=== PATIENT | female | born 1985 | race Caucasian/White ===

== ENCOUNTER 2017-06-20 13:57 | Inpatient (IN) | payer MEDICAID, OTHER ==
[~2017-06-20] VITALS: Ht 165.1 cm; Wt 59.3 kg
[2017-06-20 13:59] VITALS: BP 137/88; PULSE 75; RESP 15; TEMP 98.4; O2SAT 99
--- NOTE | 2017-06-20 14:38 | PD ---
Physical Exam Date Seen by Provider: Jun 20, 2017 Time Seen by Provider: 14:36 Narrative 31-year-old female cellulitis and swelling to the right upper eyelid since last Monday. Patient previously seen at 20 placed on Bactrim DS by mouth. Patient states his symptoms have not improved in fact the swelling has worsened. She was seen there again this morning, and the practitioner felt that she had an abscess needed to be drained. He felt uncomfortable doing it there. Patient denies fever chills. No history of MRSA in the past. No known drug allergies. Data Data Last Documented VS Vital Signs Date Time Temp Pulse Resp B/P (MAP) Pulse Ox O2 Delivery O2 Flow Rate FiO2 06/20/17 13:59 98.4 75 15 137/88 (104) 99 MDM Medical Record Reviewed: Yes Supervised Visit with ANA: Yes Narrative Course Vital signs are stable. Patient is awaiting bed placement. Condition: Stable John Osullivan Jun 20, 2017 14:38
--- NOTE | 2017-06-20 15:48 | PD ---
HPI Chief Complaint: Skin Problem Time Seen by Provider: 15:35 Travel History International Travel<30 days: No Contact w/Intl Traveler<30days: No Traveled to known affect area: No History of Present Illness HPI 31-year-old female with no significant past medical history presents for evaluation. She reports that 4-5 days ago she had an ingrown hair on her right eyebrow which she plucked and then squeezed out. She started developing redness and soft tissue swelling of the skin around the area afterwards. 2 days ago she was seen at an urgent care center and prescribed Bactrim. Her symptoms worsened which prompted reevaluation at the urgent care center today and she was sent here for further evaluation. She reports pain associated with his skin, throbbing, worse with palpation. She endorses occasional drainage when she squeezes the area underneath her right eyebrow. She has been applying warm compresses which seems to help as well. Denies fevers, chills, blurred vision. She has no other complaints at this time. FORMERLY [facility] Social History Alcohol Use: No Tobacco Use: No Allergies-Medications (Allergen,Severity, Reaction): Coded Allergies: No Known Allergies (Unverified , 05/06/16) Review of Systems Except as stated in HPI: all other systems reviewed are Neg Physical Exam Narrative GENERAL: Well-developed well-nourished female in no acute distress SKIN: Warm and dry. Right periorbital erythema is noted. There is induration and slight fluctuance of the right eyelid. HEAD: Atraumatic. Normocephalic. EYES: Pupils equal and round reactive to light extraocular muscles are intact, no proptosis, no pain with extraocular range of motion. No scleral icterus. No injection or drainage. ENT: No nasal bleeding or discharge. Mucous membranes pink and moist. NECK: Trachea midline. No JVD. Right preauricular Lymphadenopathy is noted. CARDIOVASCULAR: Regular rate and rhythm. No murmur appreciated. RESPIRATORY: No accessory muscle use. Clear to auscultation. Breath sounds equal bilaterally. GASTROINTESTINAL: Abdomen soft, non-tender, nondistended. MUSCULOSKELETAL: No obvious deformities. No clubbing. No cyanosis. No edema. NEUROLOGICAL: Awake and alert. No obvious cranial nerve deficits. Motor grossly within normal limits. Normal speech. Data Data Last Documented VS Vital Signs Date Time Temp Pulse Resp B/P (MAP) Pulse Ox O2 Delivery O2 Flow Rate FiO2 06/20/17 13:59 98.4 75 15 137/88 (104) 99 Orders Orders Complete Blood Count With Diff (06/20/17 15:41) Basic Metabolic Panel (Bmp) (06/20/17 15:41) Act Partial Throm Time (Ptt) (06/20/17 15:41) Prothrombin Time / Inr (Pt) (06/20/17 15:41) Ed Urine Pregnancytest Poc (06/20/17 15:41) Iv Access Insert/Monitor (06/20/17 15:41) Ct Facial Bones W Iv Contrast (06/20/17 ) Vancomycin Inj (Vancomycin Inj) (06/20/17 16:00) Sodium Chlor 0.9% 1000 Ml Inj (Ns 1000 M (06/20/17 15:54) Consult Oral, Facial Surgery (06/20/17 ) Iohexol 350 Inj (Omnipaque 350 Inj) (06/20/17 16:42) (Hub Use Only)Inp Phy Cons/Ref (06/20/17 ) Wound Culture And Gram Stain (06/20/17 17:28) Dexamethasone Inj (Decadron Inj) (06/20/17 17:45) Admit Order (Ed Use Only) (06/20/17 17:37) Labs Laboratory Tests Test 06/20/17 15:50 White Blood Count 10.2 TH/MM3 Red Blood Count 4.45 MIL/MM3 Hemoglobin 14.2 GM/DL Hematocrit 41.5 % Mean Corpuscular Volume 93.2 FL Mean Corpuscular Hemoglobin 31.9 PG Mean Corpuscular Hemoglobin Concent 34.2 % Red Cell Distribution Width 13.0 % Platelet Count 352 TH/MM3 Mean Platelet Volume 7.7 FL Neutrophils (%) (Auto) 68.3 % Lymphocytes (%) (Auto) 22.2 % Monocytes (%) (Auto) 8.3 % Eosinophils (%) (Auto) 0.7 % Basophils (%) (Auto) 0.5 % Neutrophils # (Auto) 6.9 TH/MM3 Lymphocytes # (Auto) 2.3 TH/MM3 Monocytes # (Auto) 0.8 TH/MM3 Eosinophils # (Auto) 0.1 TH/MM3 Basophils # (Auto) 0.1 TH/MM3 CBC Comment DIFF FINAL Differential Comment Prothrombin Time 10.6 SEC Prothromb Time International Ratio 1.0 RATIO Activated Partial Thromboplast Time 28.2 SEC Blood Urea Nitrogen 9 MG/DL Creatinine 0.80 MG/DL Random Glucose 84 MG/DL Calcium Level 9.2 MG/DL Sodium Level 137 MEQ/L Potassium Level 3.9 MEQ/L Chloride Level 104 MEQ/L Carbon Dioxide Level 25.5 MEQ/L Anion Gap 8 MEQ/L Estimat Glomerular Filtration Rate 85 ML/MIN [facility] Medical Decision Making Medical Screen Exam Complete: Yes Emergency Medical Condition: Yes Medical Record Reviewed: Yes Differential Diagnosis Periorbital cellulitis fell outpatient therapy, abscess, orbital cellulitis Narrative Course I discussed the case with the on-call craniofacial surgeon Dr. Yoon who would like CT imaging of the face, IV antibiotics, admission to medicine. CT face reveals CONCLUSION: 1. Prominent soft tissue swelling in the right periorbital region without extension into the retroseptal orbit. 2. Bilateral maxillary and left sphenoid sinus disease including air fluid levels in the maxillary sinuses, probably acute sinusitis. Dr. Yoon evaluated the patient at bedside, no surgical intervention recommended, recommended Decadron and admission. Diagnosis Primary Impression: Periorbital cellulitis of right eye Admitting Information Admitting Physician Requests: Admit Condition: Stable Nate West Jun 20, 2017 15:48
[2017-06-20] MEDS ORDERED: SODIUM CHLOR 0.9% 1000 ML INJ 1,000 ML IV SCH (15:54)
[2017-06-20] MEDS ORDERED: VANCOMYCIN INJ 1,000 MG in SODIUM CHLOR 0.9% 250 ML INJ 250 ML IV ONE (16:00)
[2017-06-20 16:11] LABS: AUTOMATED NEUTROPHIL # 6.9 TH/MM3 (1.8-7.7); BASOPHIL # 0.1 TH/MM3 (0-0.2); BASOPHIL % 0.5 % (0.0-2.0); EOSINOPHIL # 0.1 TH/MM3 (0-0.4); EOSINOPHIL % 0.7 % (0.0-4.0); HEMATOCRIT 41.5 % (35.0-46.0); HEMO FLAGS DIFF FINAL; LYMPH % 22.2 % (9.0-44.0); LYMPHOCYTE # 2.3 TH/MM3 (1.0-4.8); MEAN CELL VOLUME 93.2 FL (80.0-100.0); MEAN CORPUSCULAR HEMOGLOBIN 31.9 PG (27.0-34.0); MEAN CORPUSCULAR HGB CONC 34.2 % (32.0-36.0); MONO % 8.3 % (0.0-8.0); NEUT % 68.3 % (16.0-70.0); PLATELET COUNT 352 TH/MM3 (150-450); RED BLOOD COUNT 4.45 MIL/MM3 (4.00-5.30); WHITE BLOOD COUNT 10.2 TH/MM3 (4.0-11.0)
[2017-06-20 16:18] LABS: APTT (PATIENT) 28.2 SEC (24.3-30.1); PROTHROMBIN TIME - PATIENT 10.6 SEC (9.8-11.6)
[2017-06-20 16:32] LABS: BICARBONATE 25.5 MEQ/L (21.0-32.0); POTASSIUM 3.9 MEQ/L (3.5-5.1)
[2017-06-20] MEDS ORDERED: IOHEXOL 350 MG/ML 10 ML VIAL (for RAD DIAG) IVCONTRAST ONE (16:42)
--- NOTE | 2017-06-20 17:19 | RADRPT ---
EXAM DATE/TIME: 06/20/2017 16:30 [place] COMPARISON: No previous studies available for comparison. INDICATIONS : Right eye swelling for 4 days. IV CONTRAST: 75 cc Omnipaque 350 (iohexol) IV RADIATION DOSE: 36.40 CTDIvol (mGy) MEDICAL HISTORY : None SURGICAL HISTORY : None. ENCOUNTER: Initial ACUITY: 4 - 6 days PAIN SCALE: 6/10 LOCATION: Right facial TECHNIQUE: Volumetric scanning of the facial bones was performed. Using automated exposure control and adjustme nt of the mA and/or kV according to patient size, radiation dose was kept as low as reasonably achiev able to obtain optimal diagnostic quality images. DICOM format image data is available electronicall y for review and comparison. FINDINGS: There is prominent soft tissue swelling in the right periorbital region with soft tissues measuring u p to 12 mm in thickness. Aeration lungs extends from the supraorbital region to the mid orbit. No r etroseptal involvement. The orbital globe is normal in dimension. The facial bones are grossly intact. No fractures or areas of destruction seen. Air-fluid levels are present in both maxillary sinuses and there is moderate mucosal thickening in th e medial and lateral left maxillary sinus wall. There is mucosal thickening in the left sphenoid sin us. A no mucosal thickening in the frontal or ethmoid sinuses. CONCLUSION: 1. Prominent soft tissue swelling in the right periorbital region without extension into the retrosep bhavana orbit. 2. Bilateral maxillary and left sphenoid sinus disease including air fluid levels in the maxillary si nuses, probably acute sinusitis. Andrey England MD on June 20, 2017 at 17:03 Board Certified Radiologist. This report was verified electronically.
[2017-06-20] MEDS ORDERED: NALOXONE HCL 0.4 MG/ML AMP IV PUSH PRN (17:45)
[2017-06-20] MEDS ORDERED: SODIUM CHLORIDE 0.9% FLUSH 10 ML FLUSH IV FLUSH PRN (17:45)
[2017-06-20] MEDS ORDERED: MAGNESIUM HYDROXIDE SUSP 30 ML CUP PO PRN (17:45)
[2017-06-20] MEDS ORDERED: LACTULOSE SYRUP 20 GM/30 ML CUP PO PRN (17:45)
[2017-06-20] MEDS ORDERED: DEXAMETHASONE SOD PHOS 4 MG/ML VIAL IV PUSH ONE (17:45)
[2017-06-20] MEDS ORDERED: Vancomycin Consult Pharmacy 1 EA OTHER SCH (17:45)
[2017-06-20] MEDS ORDERED: SENNOSIDES 8.6 MG TAB PO PRN (17:45)
[2017-06-20] MEDS ORDERED: ONDANSETRON HCL 4 MG/2 ML VIAL IVP PRN (17:45)
[2017-06-20] MEDS ORDERED: BISACODYL 10 MG SUPP RECTAL PRN (17:45)
[2017-06-20] MEDS ORDERED: ACETAMINOPHEN 325 MG TAB PO PRN (17:45)
[2017-06-20] MEDS ORDERED: IBUPROFEN 800 MG TAB PO ONE (18:00)
--- NOTE | 2017-06-20 18:06 | MB ---
cc: JERROD YOON DMD DATE OF CONSULTATION 06/20/17 REASON FOR CONSULTATION Status post plucking an eyebrow right periorbital region. This is a 31-year old female who about five days ago reported that she had an ingrown hair and she popped it. Subsequent to that, she began to have edema and swelling and she used to squeeze it and she said some pus came out. She went to Urgent Care Center, was put on Bactrim but it never resolved. I have seen and examined the patient this afternoon. Her nurse is at bedside. She is alert, awake and oriented x3 in no acute distress. Denies any pain or any visual disturbances related to the eye. She also reports that warm compresses make her feel better. Denies any fever, chills, nausea or any vomiting. PAST MEDICAL HISTORY Denied ALLERGIES Denied. PAST SURGICAL HISTORY Denied SOCIAL HISTORY Denies any alcohol, tobacco or any illicit drug abuse. MEDICATIONS Denied. PHYSICAL EXAMINATION HEENT: Pupils equal, round, reactive to light and accommodation. Extraocular movements intact. Positive good visual acuity noted. On the right supraorbital rim, there appears to be an area she plucked the hair and there is an area of redness, erythema and then extending down to the upper right upper eyelid. The right supraorbital rim region is hard and it is firm. It is raised. It is well-circumscribed erythema. Mild tenderness to palpation, but no gross discomfort. No drainable collection that is noted to clinical exam. Upon examination, no pus that is noted I could see at this point. IMAGING STUDIES CT scan of the facial bones shows edema right periorbital region, supraorbital region, but I do not appreciate any drainable collection or abscess at this point. No ridge septal involvement of any collection or anything. VITAL SIGNS: Temperature 98.4, pulse is 75, respiration 15, blood pressure 137/88 with pulse ox of 99. White count is 10.2, H&H is 14.2 and 41.5 with platelets of 352. IMPRESSION AND PLAN This is a 31-year-old female who is status post plucking an eyebrow now infected. This could be infected hair follicle versus MRSA. Advised warm compress, IV antibiotics, advised to admit to medicine and infectious diseases consult. At this time, there is no surgical intervention or any drainable collection noted from my standpoint. We will follow so at this point we will just manage medically. Jerrod Yoon DMD RRT/SA /5:30 PM /5:44 PM
[2017-06-20 19:09] VITALS: BP 122/77; PULSE 66; RESP 14; O2SAT 99
[2017-06-20] MEDS ORDERED: IBUPROFEN 800 MG TAB PO PRN (19:45)
--- NOTE | 2017-06-20 19:58 | HHI.HP ---
[facility] No Primary Care Physician Admission Diagnosis right periorbital cellulitis Diagnoses: Chief Complaint: right eye pain and swelling Travel History International Travel<30 Days: No Contact w/Intl Traveler <30 Da: No Traveled to Known Affected Are: No History of Present Illness 31 y/o female with no medical history presented to the ED with right eye swelling. Patient states 5 days ago she had and ingrown eyebrow hair that she picked at with the same tool that her boyfriend used on his toe. She states the next day it began to swell and when she used a warm cloth on her eye some pus came out. She went to an urgent care and was given Bactrim, she took 3 days worth with not relief, and the swelling became worse. The redness and swelling covers her whole eye and eyelid and she can slightly open her eye. She denies any double or blurry vision, She states the pain is throbbing 5/10, and the ibuprofen has helped. She denies any chest pain, sob, fever or chills. Review of Systems Except as stated in HPI: all other systems reviewed are Neg Past Family Social History Past Medical History Patient denies any medical history Past Surgical History Patient denies any surgical history Allergies: Coded Allergies: No Known Allergies (Unverified , 05/06/16) Active Ordered Medications Current Medications Medications (Trade) Dose Ordered Sig/Kevin Route Start Time Stop Time Status Last Admin Sodium Chloride 1,000 ml @ 100 mls/hr Q10H IV 06/20/17 17:40 UNV (NS Flush) 2 ml UNSCH PRN IV FLUSH 06/20/17 17:45 UNV (NS Flush) 2 ml BID IV FLUSH 06/20/17 21:00 UNV (Tylenol) 650 mg Q4H PRN PO 06/20/17 17:45 UNV (Zofran Inj) 4 mg Q6H PRN IVP 06/20/17 17:45 UNV (Narcan Inj) 0.4 mg UNSCH PRN IV PUSH 06/20/17 17:45 UNV (Hermila-Colace) 1 tab BID PO 06/20/17 21:00 UNV (Milk Of Magnesia Liq) 30 ml Q12H PRN PO 06/20/17 17:45 UNV (Senokot) 17.2 mg Q12H PRN PO 06/20/17 17:45 UNV (Dulcolax Supp) 10 mg DAILY PRN RECTAL 06/20/17 17:45 UNV (Lactulose Liq) 30 ml DAILY PRN PO 06/20/17 17:45 UNV Pharmacy Profile Note 0 ml @ 0 mls/hr UNSCH OTHER 06/20/17 17:45 UNV Ampicillin Sodium/ Sulbactam Sodium 3 gm/Sodium Chloride 100 ml @ 200 mls/hr Q6H IV 06/20/17 17:45 UNV (Decadron Inj) 4 mg Q6HR IV PUSH 06/20/17 23:00 UNV Family History Mom: RA Social History Patient denies any tobacco, alcohol or illicit drug use. Physical Exam Vital Signs Vital Signs Date Time Temp Pulse Resp B/P (MAP) Pulse Ox O2 Delivery O2 Flow Rate FiO2 06/20/17 19:10 14 06/20/17 19:09 66 14 122/77 (92) 99 06/20/17 13:59 98.4 75 15 137/88 (104) 99 Physical Exam GENERAL: This is a well-nourished, well-developed patient, in no apparent distress. SKIN: Right hermila orbital swelling and erythema HEAD: Atraumatic. Normocephalic. EYES: Pupils equal round and reactive. ENT: Nose without bleeding, purulent drainage or septal hematoma. Airway patent. NECK: Trachea midline. No JVD CARDIOVASCULAR: Regular rate and rhythm without murmurs, gallops, or rubs. RESPIRATORY: Clear to auscultation. Breath sounds equal bilaterally. No wheezes , rales, or rhonchi. GASTROINTESTINAL: Abdomen soft, non-tender, nondistended. MUSCULOSKELETAL: Extremities without clubbing, cyanosis, or edema. No calf tenderness. NEUROLOGICAL: Awake and alert. Motor and sensory grossly within normal limits. Normal speech. Laboratory Laboratory Tests Test 06/20/17 15:50 White Blood Count 10.2 Red Blood Count 4.45 Hemoglobin 14.2 Hematocrit 41.5 Mean Corpuscular Volume 93.2 Mean Corpuscular Hemoglobin 31.9 Mean Corpuscular Hemoglobin Concent 34.2 Red Cell Distribution Width 13.0 Platelet Count 352 Mean Platelet Volume 7.7 Neutrophils (%) (Auto) 68.3 Lymphocytes (%) (Auto) 22.2 Monocytes (%) (Auto) 8.3 Eosinophils (%) (Auto) 0.7 Basophils (%) (Auto) 0.5 Neutrophils # (Auto) 6.9 Lymphocytes # (Auto) 2.3 Monocytes # (Auto) 0.8 Eosinophils # (Auto) 0.1 Basophils # (Auto) 0.1 CBC Comment DIFF FINAL Differential Comment Prothrombin Time 10.6 Prothromb Time International Ratio 1.0 Activated Partial Thromboplast Time 28.2 Blood Urea Nitrogen 9 Creatinine 0.80 Random Glucose 84 Calcium Level 9.2 Sodium Level 137 Potassium Level 3.9 Chloride Level 104 Carbon Dioxide Level 25.5 Anion Gap 8 Estimat Glomerular Filtration Rate 85 Date/Time Source Procedure Growth Status 06/20/17 18:00 Wound Face Gram Stain Pending Received 06/20/17 18:00 Wound Face Wound Culture Pending Received Result Diagram: 06/20/17 1550 06/20/17 1550 Imaging Last Impressions Maxillofacial CT 06/20/17 0000 Signed Impressions: Service Date/Time: Tuesday, June 20, 2017 16:30 - CONCLUSION: 1. Prominent soft tissue swelling in the right periorbital region without extension into the retroseptal orbit. 2. Bilateral maxillary and left sphenoid sinus disease including air fluid levels in the maxillary sinuses, probably acute sinusitis. MD Buzz Serrano VTE Risk Assessment Caprini VTE Risk Assessment: No/Low Risk (score <= 1) Caprini Risk Assessment Model Point Value = 1 Point Value = 2 Point Value = 3 Point Value = 5 Age 41-60 Minor surgery BMI > 25 kg/m2 Swollen legs Varicose veins or History of unexplained or recurrent spontaneous Oral contraceptives or hormone replacement Sepsis (< 1 month) Serious lung disease, including pneumonia (< 1 month) Abnormal pulmonary function Acute myocardial infarction Congestive heart failure (< 1 month) History of inflammatory bowel disease Medical patient at bed rest Age 61-74 Arthroscopic surgery Major open surgery (> 45 min) Laparoscopic surgery (> 45 min) Malignancy Confined to bed (> 72 hours) Immobilizing plaster cast Central venous access Age >= 75 History of VTE Family history of VTE Factor V Leiden Prothrombin [id number] Lupus anticoagulant Anticardiolipin antibodies Elevated serum homocysteine Heparin-induced thrombocytopenia Other congenital or acquired thrombophilia Stroke (< 1 month) Elective arthroplasty Hip, pelvis, or leg fracture Acute spinal cord injury (< 1 month) Prophylaxis Regimen Total Risk Factor Score Risk Level Prophylaxis Regimen 0-1 Low Early ambulation 2 Moderate Order ONE of the following: *Sequential Compression Device (SCD) *Heparin 5000 units SQ BID 3-4 Higher Order ONE of the following medications: *Heparin 5000 units SQ TID *Enoxaparin/Lovenox 40 mg SQ daily (WT < 150 kg, CrCl > 30 mL/min) *Enoxaparin/Lovenox 30 mg SQ daily (WT < 150 kg, CrCl > 10-29 mL/min) *Enoxaparin/Lovenox 30 mg SQ BID (WT < 150 kg, CrCl > 30 mL/min) AND/OR *Sequential Compression Device (SCD) 5 or more Highest Order ONE of the following medications: *Heparin 5000 units SQ TID (Preferred with Epidurals) *Enoxaparin/Lovenox 40 mg SQ daily (WT < 150 kg, CrCl > 30 mL/min) *Enoxaparin/Lovenox 30 mg SQ daily (WT < 150 kg, CrCl > 10-29 mL/min) *Enoxaparin/Lovenox 30 mg SQ BID (WT < 150 kg, CrCl > 30 mL/min) AND *Sequential Compression Device (SCD) Assessment and Plan Problem List: (1) Periorbital cellulitis of right eye ICD Code: L03.213 - Periorbital cellulitis Status: Acute Assessment and Plan 31 y/o female with no medical history presented to the ED with right eye swelling. Cellulitis, right eye, failed outpatient, patient with infected hair follicle Maxillofacial CT reviewed and shows Soft tissue swelling in the right periorbital region without extension into the retroseptal orbit -Consult maxillofacial, Dr. Yoon states no surgery at this time, will treat with IV antibiotics -Consult infectious disease -Dexamethasone IV -IV antibiotics vancomycin and Unasyn -Ibuprofen by mouth for pain management -Warm compresses when necessary DVT prophylaxis: SCDs Discussed Condition With Patient and RN Physician Certification 2 Midnight Certification Type: Admission for Inpatient Services Order for Inpatient Services The services are ordered in accordance with Medicare regulations or non- Medicare payer requirements, as applicable. In the case of services not specified as inpatient-only, they are appropriately provided as inpatient services in accordance with the 2-midnight benchmark. Estimated LOS (days): 2 days is the estimated time the patient will need to remain in the hospital, assuming treatment plan goals are met and no additional complications. Post-Hospital Plan: Home Janie Paulson Jun 20, 2017 19:58
[2017-06-20 20:00] VITALS: BP 112/74; PULSE 62; RESP 18; TEMP 98.3; O2SAT 100
[2017-06-20] MEDS: SODIUM CHLOR 0.9% 1000 ML INJ 1,000 ML IV SCH (21:59)
[2017-06-20] MEDS: DOCUSATE SODIUM 50 MG/SENNA 8.6 MG TAB PO SCH (21:59)
[2017-06-20] MEDS: SODIUM CHLORIDE 0.9% FLUSH 10 ML FLUSH IV FLUSH SCH (22:00)
[2017-06-20] MEDS: AMPICILLIN-SULBACTAM INJ 3 GM in SODIUM CHLORIDE 0.9% INJ 100 ML IV SCH (22:02)
[2017-06-21] VITALS: BP 108/64; PULSE 76; RESP 18; TEMP 97.7; O2SAT 97
[2017-06-21] MEDS: DEXAMETHASONE SOD PHOS 4 MG/ML VIAL IV PUSH SCH ×5 (00:03→23:37)
[2017-06-21] MEDS: AMPICILLIN-SULBACTAM INJ 3 GM in SODIUM CHLORIDE 0.9% INJ 100 ML IV SCH ×3 (03:40→16:00)
[2017-06-21] MEDS: VANCOMYCIN 1,000 MG/NS 250 ML IV SCH ×4 (05:44→18:20)
[2017-06-21 08:00] VITALS: BP 112/72; PULSE 61; RESP 17; TEMP 97.5; O2SAT 96
[2017-06-21] MEDS: DOCUSATE SODIUM 50 MG/SENNA 8.6 MG TAB PO SCH ×2 (09:36→21:00)
[2017-06-21] MEDS: SODIUM CHLORIDE 0.9% FLUSH 10 ML FLUSH IV FLUSH SCH ×2 (09:37→22:42)
[2017-06-21] MEDS: SODIUM CHLOR 0.9% 1000 ML INJ 1,000 ML IV SCH ×3 (11:31→22:42)
[2017-06-21 12:00] VITALS: BP 113/78; PULSE 77; RESP 17; TEMP 98; O2SAT 98
[2017-06-21 16:00] VITALS: BP 109/64; PULSE 68; RESP 17; TEMP 97.9; O2SAT 98
--- NOTE | 2017-06-21 16:40 | HHI.PR ---
Subjective Remarks Patient reports improvement in right periorbital cellulitis. Cultures have shown MRSA thus far. Sensitivities pending. Objective Vital Signs Date Time Temp Pulse Resp B/P (MAP) Pulse Ox O2 Delivery O2 Flow Rate FiO2 06/21/17 16:00 97.9 68 17 109/64 (79) 98 06/21/17 12:00 98.0 77 17 113/78 (90) 98 06/21/17 08:00 97.5 61 17 112/72 (85) 96 06/21/17 00:00 97.7 76 18 108/64 (79) 97 06/20/17 20:14 06/20/17 20:00 98.3 62 18 112/74 (87) 100 06/20/17 19:10 14 06/20/17 19:09 66 14 122/77 (92) 99 I/O 06/20/17 06/20/17 06/20/17 06/21/17 06/21/17 06/21/17 07:00 15:00 23:00 07:00 15:00 23:00 Intake Total 1690 ml 1201 ml 100 ml 100 ml Output Total 280 ml 300 ml Balance 1410 ml 901 ml 100 ml 100 ml Intake Oral 340 ml 220 ml IV Total 1350 ml 981 ml 100 ml 100 ml Output Urine Total 280 ml 300 ml # Bowel Movements 0 0 Result Diagram: 06/20/17 1550 06/20/17 1550 Objective Remarks GENERAL: NAD, A&Ox3 HEAD: Normocephalic. Erythema superior aspect of right periorbital cavity. NECK: Supple, trachea midline. No lymphadenopathy. EYES: No scleral icterus. No injection or drainage. CARDIOVASCULAR: Regular rate and rhythm without murmurs, gallops, or rubs. RESPIRATORY: Breath sounds equal bilaterally. No accessory muscle use. GASTROINTESTINAL: Abdomen soft, non-tender, nondistended. MUSCULOSKELETAL: No cyanosis, or edema. SKIN: Warm and dry. NEURO: No focal neurological deficitis. A/P Problem List: (1) Periorbital cellulitis of right eye ICD Code: L03.213 - Periorbital cellulitis Status: Acute Assessment and Plan Assessment and Plan 31 y/o female admitted with right periorbital cellulitis Right periorbital cellulitis Continue vancomycin Continue Unasyn Continue pain treatments as needed Will select discharge antibiotic based on sensitivities Follow cultures DVT prophylaxis SCDs Anatoliy Huynh MD Jun 21, 2017 16:40
--- NOTE | 2017-06-21 16:44 | HHI.PR ---
Subjective Remarks pt seen and examined, pt's nurse at bedside aaox3, nad pt reports spontaneous drainage s/p abx/warm compress - cultured no complaints, reports feeling much better, denies any visual problems on abx/warm compress Objective Vital Signs Date Time Temp Pulse Resp B/P (MAP) Pulse Ox O2 Delivery O2 Flow Rate FiO2 06/21/17 16:00 97.9 68 17 109/64 (79) 98 06/21/17 12:00 98.0 77 17 113/78 (90) 98 06/21/17 08:00 97.5 61 17 112/72 (85) 96 06/21/17 00:00 97.7 76 18 108/64 (79) 97 06/20/17 20:14 06/20/17 20:00 98.3 62 18 112/74 (87) 100 06/20/17 19:10 14 06/20/17 19:09 66 14 122/77 (92) 99 I/O 06/20/17 06/20/17 06/20/17 06/21/17 06/21/17 06/21/17 07:00 15:00 23:00 07:00 15:00 23:00 Intake Total 1690 ml 1201 ml 100 ml 100 ml Output Total 280 ml 300 ml Balance 1410 ml 901 ml 100 ml 100 ml Intake Oral 340 ml 220 ml IV Total 1350 ml 981 ml 100 ml 100 ml Output Urine Total 280 ml 300 ml # Bowel Movements 0 0 Result Diagram: 06/20/17 1550 06/20/17 1550 Other Results GRAM STAIN Final 06/21/17 FEW WBC'S RARE GRAM POSITIVE COCCI IN PAIRS AND CLUSTERS HEAVY GROWTH S. AUREUS MRSA Objective Remarks PERRLA/EOMI right eye -->+ good visual acuity significant reduction in right periorbital edema/erythema much softer, no pus noted eye wide open no tenderness Assessment and Plan Assessment and Plan s/p plucking right eyebrow, 5 days ago failed out patient therapy cultured in ed GRAM STAIN Final 06/21/17-818 FEW WBC'S RARE GRAM POSITIVE COCCI IN PAIRS AND CLUSTERS HEAVY GROWTH S. AUREUS MRSA continue abx/ warm compress advise ID consult for abx/ discharge antibiotics no surgical intervention needed form oms standpoint OMS signing off, recall as required. Jona Yoon DMD Jun 21, 2017 16:44
--- NOTE | 2017-06-21 17:00 | PD.ID.CON ---
History of Present Illness Service ID Consult Requested By Reason for Consult Evaluation and Mment of Right periorbital cellulitis. Primary Care Physician No Primary Care Physician Diagnoses: History of Present Illness is a 31 y/o F with no significant PMHx presents to the ED with right eye swelling. Patient states 5 days ago she had ingrown eyebrow hair that she picked at with the same tool that her boyfriend used on his toe. She states the next day it began to swell and when she used a warm cloth on her eye some pus came out. She went to an urgent care and was given Bactrim, she took 3 days worth with not relief, and the swelling became worse. The redness and swelling covers her whole eye and eyelid and she can slightly open her eye. She denies any double or blurry vision, She states the pain is throbbing 5/10, and the ibuprofen has helped. She denies any chest pain, sob, fever or chills. ID was consulted for periorbital cellulitis. Review of Systems Constitutional: DENIES: Diaphoretic episodes, Fatigue, Fever, Weight gain, Weight loss, Chills, Dizziness, Change in appetite, Night Sweats Endocrine: DENIES: Abnorml menstrual pattern, Heat/cold intolerance, Polydipsia , Polyuria, Polyphagia Eyes: DENIES: Blurred vision, Diplopia, Eye inflammation, Eye pain, Vision loss , Photosensitivity, Double Vision Ears, nose, mouth, throat: DENIES: Tinnitus, Hearing loss, Vertigo, Nasal discharge, Oral lesions, Throat pain, Hoarseness, Ear Pain, Running Nose, Epistaxis, Sinus Pain, Toothache, Odynophagia Respiratory: DENIES: Apneas, Cough, Snoring, Wheezing, Hemoptysis, Sputum production, Shortness of breath Cardiovascular: DENIES: Chest pain, Palpitations, Syncope, Dyspnea on Exertion , PND, Lower Extremity Edema, Orthopnea, Claudication Gastrointestinal: DENIES: Abdominal pain, Black stools, Bloody stools, Constipation, Diarrhea, Nausea, Vomiting, Difficulty Swallowing, Anorexia Genitourinary: DENIES: Abnormal vaginal bleeding, Dysmenorrhea, Dyspareunia, Sexual dysfunction, Urinary frequency, Urinary incontinence, Urgency, Hematuria , Dysuria, Nocturia, Vaginal discharge Musculoskeletal: DENIES: Joint pain, Muscle aches, Stiffness, Joint Swelling, Back pain, Neck pain Integumentary: DENIES: Abnormal pigmentation, Pruritus, Rash, Nail changes, Breast masses, Breast skin changes, Nipple discharge Hematologic/lymphatic: DENIES: Bruising, Lymphadenopathy Immunologic/allergic: DENIES: Eczema, Urticaria Neurologic: DENIES: Abnormal gait, Headache, Localized weakness, Paresthesias, Seizures, Speech Problems, Tremor, Poor Balance Psychiatric: DENIES: Anxiety, Confusion, Mood changes, Depression, Hallucinations, Agitation, Suicidal Ideation, Homicidal Ideation, Delusions Except as stated in HPI: all other systems reviewed are Neg Past Family Social History Allergies: Coded Allergies: No Known Allergies (Unverified , 05/06/16) Past Medical History None Past Surgical History None Reported Medications I attest I reviewed, obtained or updated home meds and current meds. Bactrim DS 1 po bid Active Ordered Medications Last Impressions Maxillofacial CT 06/20/17 0000 Signed Impressions: Service Date/Time: Tuesday, June 20, 2017 16:30 - CONCLUSION: 1. Prominent soft tissue swelling in the right periorbital region without extension into the retroseptal orbit. 2. Bilateral maxillary and left sphenoid sinus disease including air fluid levels in the maxillary sinuses, probably acute sinusitis. Andrey England MD Family History Mom has RA Social History Patient denies any tobacco, alcohol or illicit drug use. Lives with boyfriend of 11 yrs and has a 13 month old baby. Physical Exam Vital Signs Vital Signs Date Time Temp Pulse Resp B/P (MAP) Pulse Ox O2 Delivery O2 Flow Rate FiO2 06/21/17 16:00 97.9 68 17 109/64 (79) 98 06/21/17 12:00 98.0 77 17 113/78 (90) 98 06/21/17 08:00 97.5 61 17 112/72 (85) 96 06/21/17 00:00 97.7 76 18 108/64 (79) 97 06/20/17 20:14 06/20/17 20:00 98.3 62 18 112/74 (87) 100 06/20/17 19:10 14 06/20/17 19:09 66 14 122/77 (92) 99 Physical Exam GENERAL: This is a well-nourished, well-developed patient, in no apparent distress. SKIN: No rashes, ecchymoses or lesions. Cool and dry. HEAD: Atraumatic. Normocephalic. No temporal or scalp tenderness. EYES: Pupils equal round and reactive. Extraocular motions intact. No scleral icterus. No injection or drainage. Right eye upper eyelid swelling and erythema noted. ENT: Nose without bleeding, purulent drainage or septal hematoma. Throat without erythema, tonsillar hypertrophy or exudate. Uvula midline. Airway patent. NECK: Trachea midline. Supple, nontender, no meningeal signs. CARDIOVASCULAR: Regular rate and rhythm without murmurs, gallops, or rubs. RESPIRATORY: Clear to auscultation. Breath sounds equal bilaterally. No wheezes , rales, or rhonchi. GASTROINTESTINAL: Abdomen soft, non-tender, nondistended. MUSCULOSKELETAL: Extremities without clubbing, cyanosis, or edema. NEUROLOGICAL: Awake and alert. Cranial nerves II through XII intact. Motor and sensory grossly within normal limits. Five out of 5 muscle strength in all muscle groups. Normal speech. Psych cooperative IV line sites with no e.o infection. Laboratory Date/Time Source Procedure Growth Status 06/20/17 18:00 Wound Face Gram Stain - Final Resulted 06/20/17 18:00 Wound Culture - Preliminary S. Aureus Mrsa Resulted Result Diagram: 06/20/17 1550 06/20/17 1550 Imaging Last Impressions Maxillofacial CT 06/20/17 0000 Signed Impressions: Service Date/Time: Tuesday, June 20, 2017 16:30 - CONCLUSION: 1. Prominent soft tissue swelling in the right periorbital region without extension into the retroseptal orbit. 2. Bilateral maxillary and left sphenoid sinus disease including air fluid levels in the maxillary sinuses, probably acute sinusitis. Andrey England MD Assessment and Plan Assessment and Plan Right periorbital cellulitis Recs Continue Vanco IV DC Unasyn Reviewed notes Geovanny Saenz. On discharge please provide pt script for mupirocin ointment and Chlorhexidine soap. Geovanny Saenz. Zahida Ahuja MD Jun 21, 2017 17:00
[2017-06-21 20:00] VITALS: BP 109/66; PULSE 71; RESP 17; TEMP 98.8; O2SAT 98
[2017-06-22] VITALS: BP 100/62; PULSE 70; RESP 17; TEMP 97.8; O2SAT 98
[2017-06-22] MEDS: DEXAMETHASONE SOD PHOS 4 MG/ML VIAL IV PUSH SCH ×3 (05:08→17:44)
[2017-06-22] MEDS: VANCOMYCIN 1,000 MG/NS 250 ML IV SCH ×2 (05:09)
[2017-06-22] MEDS: SODIUM CHLOR 0.9% 1000 ML INJ 1,000 ML IV SCH (05:13)
[2017-06-22] MEDS ORDERED: PHARMACY ORDERED LAB ONE (05:45)
[2017-06-22 06:09] LABS: VANCOMYCIN TROUGH 6.2 MCG/ML (5.0-10.0)
[2017-06-22 08:00] VITALS: BP 112/63; PULSE 70; RESP 20; TEMP 97.5; O2SAT 97
[2017-06-22] MEDS: SODIUM CHLORIDE 0.9% FLUSH 10 ML FLUSH IV FLUSH SCH (08:44)
[2017-06-22] MEDS: DOCUSATE SODIUM 50 MG/SENNA 8.6 MG TAB PO SCH (08:44)
[2017-06-22 12:00] VITALS: BP 113/79; PULSE 63; RESP 19; TEMP 97.5; O2SAT 99
[2017-06-22] MEDS ORDERED: VANCOMYCIN 1,000 MG/NS 250 ML IV SCH ×2 (14:00)
[2017-06-22] MEDS ORDERED: BACTOIN EACH NARE (16:43)
[2017-06-22] MEDS ORDERED: BACT800T5 PO (16:43)
[2017-06-22] MEDS ORDERED: CHLO60LI TOPICAL (16:43)
[2017-06-22] MEDS ORDERED: LACTTAB8 PO (16:43)
--- NOTE | 2017-06-22 16:47 | HHI.DS ---
Discharge Summary Admission Date Jun 20, 2017 at 17:38 Discharge Date: Jun 22, 2017 Admitting Diagnosis right periorbital cellulitis (1) Periorbital cellulitis of right eye ICD Code: L03.213 - Periorbital cellulitis Diagnosis: Principal Status: Acute Procedures None Brief History - From Admission 31 y/o female with no medical history presented to the ED with right eye swelling. Patient states 5 days ago she had and ingrown eyebrow hair that she picked at with the same tool that her boyfriend used on his toe. She states the next day it began to swell and when she used a warm cloth on her eye some pus came out. She went to an urgent care and was given Bactrim, she took 3 days worth with not relief, and the swelling became worse. The redness and swelling covers her whole eye and eyelid and she can slightly open her eye. She denies any double or blurry vision, She states the pain is throbbing 5/10, and the ibuprofen has helped. She denies any chest pain, sob, fever or chills. CBC/BMP: 06/20/17 1550 06/22/17 0450 Significant Findings Laboratory Tests Test 06/20/17 15:50 06/22/17 04:50 Monocytes (%) (Auto) 8.3 % (0.0-8.0) Estimat Glomerular Filtration Rate 85 ML/MIN (>89) Hospital Course Mrs. Casas is a 31-year-old female. She was admitted secondary to right periorbital cellulitis. Small abscess may have been there in the beginning. Patient had tried Bactrim for 2 days as an outpatient with worsening symptoms. After she came into the ER there was spontaneous drainage and vancomycin was started as a treatment. She's had quick resolution of swelling and redness since this time. Culture was obtained and sensitivities show that she is actually sensitive to Bactrim so earlier worsening may have been secondary to abscess. At this point she is medically stable for discharge to home. She'll discharged on Bactrim and a probiotic. 30 day treatment for MRSA eradication is also provided. Pt Condition on Discharge: Stable Discharge Disposition: Discharge Home Discharge Time: <= 30 minutes Discharge Instructions DIET: Follow Instructions for: As Tolerated, No Restrictions Activities you can perform: Regular-No Restrictions Follow up Referrals: PCP Follow-up - 1 Week New Medications: Chlorhexidine Gluconate (Hand Wash) 2 % Liquid 1 APPLIC TOPICAL DAILY for MRSA, #1 BAR 2 Refills Use soap topically as body wash for 30 days, daily. Lactobacillus Acidophilus (Lactobacillus Acidophilus) 1 Billion Cell Tab 1 TAB PO TIDAC for Nutritional Supplement, #60 TAB 0 Refills Over the counter alternatives ok to use Mupirocin Nasal Oint (Bactroban Nasal Oint) 2% Oint 1 APPLIC EACH NARE BID for Mgmt Bacterial Infection for 30 Days, #1 TUBE 2 Refills For 5 days. Sulfamethoxazole-Trimethoprim (Bactrim DS) 800-160 Mg Tab 1 TAB PO BID for Infection, #28 TAB 0 Refills Anatoliy Huynh MD Jun 22, 2017 16:47
[2017-06-23] MEDS ORDERED: PHARMACY ORDERED LAB ONE (05:45)
== END 2017-06-22 18:10 | disposition home or self-care (01) | DRG 603 ==
LOC: NEPC 13:57 → NEDA 17:38 → N07A 19:56
PROVIDERS: ADMIT Hospitalist; ATTEND Hospitalist
DX: L03.213 Periorbital cellulitis (principal); B95.62 Methicillin resistant Staphylococcus aureus infection as the cause of diseases classified elsewhere
CPT/HCPCS: 70487; 80048; 80202; 82565; 84703; 85025; 85610; 85730; 86403; 87070; 87147; 87186; 87205; 96365; J0295; J1100; J3370; J7030; J7050; Q9967